=== PATIENT | female | born 1950 | race Caucasian/White ===

== ENCOUNTER 2019-04-07 13:02 | Day surgery (SDC) | payer MEDICARE, OTHER ==
[~2019-04-07] VITALS: Ht 165.1 cm; Wt 74.8 kg
[~2019-04-07 13:02] MED LIST: CALCIUM 600 +1 EACH PO; HYDROCHLOROTHIA25 MG PO; VITAMIN D31000 UNI1 PO; ZYRTEC10 MG PO
--- NOTE | 2019-04-07 14:23 | NUR ---
04/07/19 1423 Aiyana Galeano 1420 PATIENT ARRIVES TO PACU AWAKE. RESP EVEN AND UNLABORED, ROOM AIR SATS >95%. DENIES PAIN OR NAUSEA. PASSING GAS.
--- NOTE | 2019-04-08 08:36 | OR ---
[facility] [address] [place], [place] [address] Signed DATE OF OPERATION: 04/07/2019 SURGEON: Berta Honeycutt MD PREOPERATIVE DIAGNOSIS: History of hyperplastic polyps in 2009; diarrhea episode months ago, resolved. POSTOPERATIVE DIAGNOSIS: Scattered diverticula. No evidence of polyps, colitis, or cancer. PROCEDURE: Total colonoscopy to cecum. ANESTHESIA: Intravenous sedation, fentanyl 100 mcg, Versed 4 mg. INDICATION: This 69-year-old white woman is a patient Dr. Torie Main and known to me from the past having undergone colonoscopy in 2009. At that time, she is noted to have two hyperplastic polyps. She has had no complaints of diarrhea, constipation, or rectal bleeding, though she did have diarrhea problem following a trip to [place] in the past. That has resolved entirely. She is considered to have hemochromatosis. Additionally, she has undergone liver cyst drainage and probable marsupialization as well a number of years ago. She is admitted at this time to undergo colonoscopy for surveillance. She understands the risks of bleeding, infection, and perforation. FINDINGS: The prep was good. Complete colonoscopy was undertaken to the cecum without question. The ileocecal valve was well identified as was the appendiceal orifice. The colon throughout had no sign of polyps or colitis, only scattered diverticula, most dominantly in the sigmoid. Retroflexed views showed some internal hemorrhoidal change as well. DESCRIPTION OF PROCEDURE: The patient was brought to the endoscopy suite and placed in lateral decubitus position, given intravenous sedation to the point of slurred speech and nystagmus. Digital rectal examination was normal. An Olympus video colonoscope was passed in the rectum and manipulated throughout the colon noting numerous diverticula in the sigmoid. These were small generally. Scope was ultimately advanced to the cecum where the ileocecal valve and appendiceal orifice Electronically Signed By: BERTA HONEYCUTT MD 04/08/19 0836 PATIENT NAME: JEANNETTE ALCANTARA OPERATIVE REPORT DATE OF : 54 REPORT #: [id number] PHYSICIAN: BERTA HONEYCUTT MD PCP: TORIE MAIN MD REPORT IS CONFIDENTIAL AND NOT TO BE RELEASED WITHOUT AUTHORIZATION [facility] [address] [facility] [place] [address] Signed were identified as normal. The scope was withdrawn from that point and careful inspection upon withdrawal of scope showed no sign of abnormality other than diverticula previously noted. Retroflexed view of the rectum showed some mild internal hemorrhoidal change. There was no sign of neoplasm. The scope was removed. The patient was taken to recovery room in good condition. CONCLUDING DIAGNOSIS: Diverticulosis. No evidence of polyps. PLAN: Recommend repeat colonoscopy in 10 years sooner if clinically indicated. Recommend also high-fiber diet based on diverticular disease. MD EVELYNE Nj/MODL /[id number] cc: Torie Main MD Copies: ~ Electronically Signed By: BERTA HONEYCUTT MD 04/08/19 0836 PATIENT NAME: JEANNETTE ALCANTARA OPERATIVE REPORT DATE OF : 54 REPORT #: [id number] PHYSICIAN: BERTA HONEYCUTT MD PCP: TORIE MAIN MD REPORT IS CONFIDENTIAL AND NOT TO BE RELEASED WITHOUT AUTHORIZATION
== END 2019-04-07 14:50 | disposition home or self-care (01) ==
LOC: OPS 13:02 → DS 13:02 → OPS 14:00
PROVIDERS: Surgery
PROC: 0DJD8ZZ Inspection of Lower Intestinal Tract, Via Natural or Artificial Opening Endoscopic (ICD-10-PCS; principal; 2019-04-07 14:00)
DX: Z12.11 Encounter for screening for malignant neoplasm of colon (principal); K57.30 Diverticulosis of large intestine without perforation or abscess without bleeding; K64.8 Other hemorrhoids; I10 Essential (primary) hypertension; K21.9 Gastro-esophageal reflux disease without esophagitis; E83.119 Hemochromatosis, unspecified; K76.89 Other specified diseases of liver; Z86.010 Personal history of colon polyps; Z88.0 Allergy status to penicillin; Z88.5 Allergy status to narcotic agent; Z98.890 Other specified postprocedural states
CPT/HCPCS: G0105; J2250; J3010; J7120

== ENCOUNTER → 2021-10-25 | Emergency (ER) | payer MEDICARE, OTHER ==
[~2021-10-25] VITALS: Ht 165.1 cm; Wt 74.8 kg
[~2021-10-25] MED LIST changes: +ALEVE220 MG PO; +CINNAMON500 MG PO; +K-TAB ER20 MEQ PO; +LOSARTAN POTASS50 MG PO; +PEPCID20 MG PO; +VITAMIN B125000 MCG PO
--- NOTE | 2021-10-28 15:56 | EKG ---
[facility] [address] [facility] [place], [place] [address] Signed Sinus tachycardia with premature ventricular complexes or fusion complexes Low voltage QRS Septal infarct , age undetermined Inferolateral injury pattern ACUTE [place] / STEMI Abnormal ECG No previous ECGs available Confirmed by FLORIDALMA SIU MD ([id number]) on 10/28/2021 3:56:35 PM Electronically Signed By: FLORIDALMA SIU MD 10/28/21 1556 PATIENT NAME: JEANNETTE ALCANTARA Electrocardiogram DATE OF : 54 PHYSICIAN: FLORIDALMA SIU MD REPORT #: [id number] REPORT IS CONFIDENTIAL AND NOT TO BE RELEASED WITHOUT AUTHORIZATION
== END ==
LOC: ED 18:58
DX: I21.3 ST elevation (STEMI) myocardial infarction of unspecified site (principal); Z87.891 Personal history of nicotine dependence; Z88.0 Allergy status to penicillin; Z88.5 Allergy status to narcotic agent; Z88.8 Allergy status to other drugs, medicaments and biological substances; Z79.899 Other long term (current) drug therapy; Z20.822 Contact with and (suspected) exposure to COVID-19
CPT/HCPCS: 36415; 71045; 80053; 83735; 84484; 85025; 93005; 93010; 96374; 96375; 99285-25; J1644; U0003